=== PATIENT | male | born 1950 | race Caucasian/White ===

== ENCOUNTER 2021-12-02 09:53 | Outpatient (CLI) | payer OTHER ==
[2021-12-02 11:15] LABS: #Basophils 0.1 10x3/uL (0.0-0.2); #Eosinphils 0.4 10x3/uL (0.0-0.5); #Monocytes 0.5 10x3/uL (0.0-1.1); #Neutrophils 5.4 10x3/uL (1.5-8.4); %Basophils 0.6 % (0.0-2.0); %Eosinophils 5.1 % (0.0-6.0); %Lymphocytes 16.7 % (18.0-47.0); %Neutrophils 70.1 % (40.0-75.0); Hemoglobin 13.5 g/dL (13.5-17.5); Mean Corpuscular HGB CONC 33.3 g/dL (32.0-36.0); Mean Corpuscular Hemoglobin 32.6 pg (27.0-33.0); Mean Corpuscular Volume 97.8 fl (81.2-95.1); Mean Platelet Volume 8.7 fl (7.4-10.4); Platelet Count 317 10x3/uL (150-450); RBC Distribution Width 13.2 % (11.5-14.5); Red Blood Cell (RBC) Count 4.14 10x6/uL (4.32-5.72); White Blood Cell (WBC) Count 7.7 10x3/uL (3.5-10.5)
[2021-12-02 11:43] LABS: ALT (SGPT) 12 U/L (8-55); AST (SGOT) 21 U/L (5-34); Alkaline Phosphatase 96 U/L (40-110); Anion Gap 14 mmol/L (10-20); BUN (Urea Nitrogen) 24 mg/dL (8.4-25.7); Bilirubin, Total 0.4 mg/dL (0.2-1.2); Calc. Creatinine Clearance 0 mL/min (70-130); Calcium 9.7 mg/dL (7.8-10.44); Carbon Dioxide 27 mmol/L (23-31); Chloride 105 mmol/L (98-107); Estimated GFR 61; Globulin 2.9 g/dL (2.4-3.5); Glucose 61 mg/dL (80-115); Potassium 4.6 mmol/L (3.5-5.1); Protein, Total 6.9 g/dL (5.8-8.1); Sodium 141 mmol/L (136-145)
[2021-12-02 14:18] LABS: Hemoglobin A1c 5.8 % (4.0-6.0)
== END 2021-12-02 09:54 | disposition home or self-care (01) ==
LOC: LABBT 09:53
PROVIDERS: ATTEND Surgery
DX: Z01.818 Encounter for other preprocedural examination (principal); K63.89 Other specified diseases of intestine; Z20.822 Contact with and (suspected) exposure to COVID-19
CPT/HCPCS: 80053; 83036; 85025; 87811; 93005; 93010

== ENCOUNTER 2021-12-02 10:15 | Inpatient (IN) | payer OTHER ==
[2021-12-05 12:50] VITALS: BMI 18.9
[2021-12-07] MEDS ORDERED: Bupivacaine/Epinephrine 0.25% 30 ML VIAL ONE (10:18)
[2021-12-07] MEDS ORDERED: fentaNYL Citrate/PF 100 MCG/2 ML SYRINGE ONE (10:54)
[2021-12-07] MEDS ORDERED: SUGAMMADEX SODIUM 200 MG/2 ML VIAL ONE (10:54)
[2021-12-07] MEDS ORDERED: Famotidine/PF 20 mg/2ml Vial ONE (10:54)
[2021-12-07] MEDS ORDERED: Dexamethasone 20 MG/5 ML VIAL ONE (10:57)
[2021-12-07] MEDS ORDERED: Lidocaine 1% PF 5 ML VIAL ONE (10:57)
[2021-12-07] MEDS ORDERED: PHENYLEPHRINE-NS 100 MCG/ML 10 ML SYRINGE ONE (10:57)
[2021-12-07] MEDS ORDERED: Ketorolac Tromethamine 30 MG/ML VIAL ONE (10:57)
[2021-12-07] MEDS ORDERED: Rocuronium Bromide 10 MG/ML (10ML VIAL) ONE (10:57)
[2021-12-07] MEDS ORDERED: Ondansetron PF 4 MG/2 ML Vial ONE (10:57)
[2021-12-07] MEDS ORDERED: Calcium Chloride 1 GM/10 ML Abboject SYRINGE ONE (10:57)
[2021-12-07] MEDS ORDERED: PROPOFOL 200 MG/20 ML VIAL ONE (10:57)
[2021-12-07] MEDS ORDERED: Midazolam HCl 2 mg/2 ml Vial ONE (11:04)
[2021-12-07] MEDS ORDERED: Sodium Chloride 0.9% 100 ML ONE (11:17)
[2021-12-07] MEDS ORDERED: cefOXitin 2 GM VIAL ONE (11:17)
[2021-12-07] MEDS ORDERED: PACU-Morphine 4MG/ML VIAL SLOW IVP PRN (13:01)
[2021-12-07] MEDS ORDERED: Ondansetron HCl/PF 4 MG/2 ML Vial IVP PRN (13:01)
[2021-12-07] MEDS ORDERED: Promethazine HCl 25 MG/ML VIAL IM PRN ×2 (13:01→13:27)
[2021-12-07] MEDS ORDERED: Promethazine HCl 25 MG/ML VIAL IVPB PRN (13:01)
[2021-12-07] MEDS ORDERED: Fentanyl 100 MCG/2 ML VIAL SLOW IVP PRN (13:27)
[2021-12-07] MEDS ORDERED: hydrALAZINE 20 MG/ML VIAL SLOW IVP PRN (13:27)
[2021-12-07] MEDS ORDERED: Ondansetron PF 4 MG/2 ML Vial IVP PRN (13:27)
[2021-12-07] MEDS: D5 1/2 NS w/20 mEq KCL 1,000 ML IV SCH ×2 (16:15→23:16)
[2021-12-07] MEDS: cefOXitin Sodium 1 GM in Sodium Chloride 0.9% 100 ML IVPB SCH (20:40)
[2021-12-07] MEDS: Famotidine/PF 20 mg/2ml Vial SLOW IVP SCH (20:47)
[2021-12-07] MEDS: Famotidine 20 MG TAB PO SCH (23:16)
[2021-12-08] MEDS: D5 1/2 NS w/20 mEq KCL 1,000 ML IV SCH (00:09)
[2021-12-08] MEDS: cefOXitin Sodium 1 GM in Sodium Chloride 0.9% 100 ML IVPB SCH (03:28)
[2021-12-08 05:41] LABS: #Lymphocytes 0.4 thou/uL (1.20-3.40); #Monocytes 0.5 thou/uL (0.11-0.59); #Neutrophils 12.1 thou/uL (1.40-6.50); %Basophils 0.1 % (0.0-1.0); %Eosinophils 0.1 % (0.0-10.0); %Lymphocytes 3.2 % (21.0-51.0); %Monocytes 3.5 % (0.0-10.0); %Neutrophils 93.2 % (42.0-75.0); Hemoglobin 12.9 g/dL (14.0-18.0); Mean Corpuscular HGB CONC 33.1 g/dL (32.0-36.0); Mean Corpuscular Hemoglobin 33.7 pg (27.0-31.0); Mean Platelet Volume 6.2 fL (7.4-10.4); Platelet Count 245 thou/uL (130-400); Red Blood Cell (RBC) Count 3.83 mill/uL (4.70-6.10)
[2021-12-08 06:12] LABS: Anion Gap 13 mmol/L (10-20); BUN (Urea Nitrogen) 15 mg/dL (8.4-25.7); Calc. Creatinine Clearance 40 mL/min (70-130); Calcium 9.4 mg/dL (7.8-10.44); Carbon Dioxide 24 mmol/L (23-31); Chloride 104 mmol/L (98-107); Estimated GFR 60; Glucose 159 mg/dL (80-115); Potassium 4.6 mmol/L (3.5-5.1); Sodium 136 mmol/L (136-145)
[2021-12-08] MEDS ORDERED: D5 1/2 NS w/20 mEq KCL 1,000 ML IV SCH (08:19)
[2021-12-08] MEDS: Amlodipine 10 MG TAB PO SCH (09:06)
[2021-12-08] MEDS: FLUoxetine HCl 20 MG CAP PO SCH (09:06)
[2021-12-08] MEDS: Famotidine 20 MG TAB PO SCH ×2 (09:07→21:14)
[2021-12-08] MEDS: Enoxaparin Sodium 40 MG/0.4 ML SYRINGE SC SCH (09:07)
[2021-12-08] MEDS: busPIRone HCl 10 MG TAB PO SCH (09:07)
[2021-12-08] MEDS: Famotidine/PF 20 mg/2ml Vial SLOW IVP SCH ×2 (09:07→21:11)
[2021-12-09] MEDS: Amlodipine 10 MG TAB PO SCH (08:51)
[2021-12-09] MEDS: FLUoxetine HCl 20 MG CAP PO SCH (08:52)
[2021-12-09] MEDS: Famotidine 20 MG TAB PO SCH ×2 (08:53→20:01)
[2021-12-09] MEDS: busPIRone HCl 10 MG TAB PO SCH (08:53)
[2021-12-09] MEDS: Enoxaparin Sodium 40 MG/0.4 ML SYRINGE SC SCH (08:53)
[2021-12-09] MEDS: Famotidine/PF 20 mg/2ml Vial SLOW IVP SCH ×2 (19:37→19:52)
[2021-12-09] MEDS: HYDROcodone/Acetaminophen 7.5/325 mg Tablet PO PRN (20:00)
[2021-12-10] MEDS: Enoxaparin Sodium 40 MG/0.4 ML SYRINGE SC SCH (09:23)
[2021-12-10] MEDS: FLUoxetine HCl 20 MG CAP PO SCH (09:24)
[2021-12-10] MEDS: Famotidine 20 MG TAB PO SCH (09:24)
[2021-12-10] MEDS: busPIRone HCl 10 MG TAB PO SCH (09:24)
[2021-12-10] MEDS: Amlodipine 10 MG TAB PO SCH (09:24)
[2021-12-10] MEDS: HYDROcodone/Acetaminophen 7.5/325 mg Tablet PO PRN (09:29)
[2021-12-10] MEDS: Famotidine/PF 20 mg/2ml Vial SLOW IVP SCH (09:30)
[2021-12-10 11:36] VITALS: BP 110/77; TEMP 97.7
== END 2021-12-10 12:50 | disposition home or self-care (01) | DRG 331 ==
LOC: SURG A 12-07 07:04
PROVIDERS: ADMIT Surgery; ATTEND Surgery
PROC: 0DTF4ZZ Resection of Right Large Intestine, Percutaneous Endoscopic Approach (ICD-10-PCS; principal; 2021-12-08)
PROC: 8E0W4CZ Robotic Assisted Procedure of Trunk Region, Percutaneous Endoscopic Approach (ICD-10-PCS; 2021-12-08)
DX: D12.2 Benign neoplasm of ascending colon (principal); Z20.822 Contact with and (suspected) exposure to COVID-19; F41.9 Anxiety disorder, unspecified; N18.30 Chronic kidney disease, stage 3 unspecified; I12.9 Hypertensive chronic kidney disease with stage 1 through stage 4 chronic kidney disease, or unspecified chronic kidney disease; F17.210 Nicotine dependence, cigarettes, uncomplicated; E78.00 Pure hypercholesterolemia, unspecified; Z79.899 Other long term (current) drug therapy; Z86.73 Personal history of transient ischemic attack (TIA), and cerebral infarction without residual deficits; Z90.49 Acquired absence of other specified parts of digestive tract
CPT/HCPCS: 36415; 36416; 80048; 85025; 88307; J0694; J1100; J1650; J1885; J2250; J2405; J2704; J3010; J3480; J3490; S0028